=== PATIENT | female | born 1980 ===

== ENCOUNTER 2019-05-31 14:48 | Outpatient (CLI) | payer OTHER | END 2019-05-31 15:37 | disposition home or self-care (01) | LOC: LAB 14:48 | DX: D17.79 Benign lipomatous neoplasm of other sites (principal) ==

== ENCOUNTER 2019-06-05 05:40 | Day surgery (SDC) | payer OTHER | END 2019-06-05 11:30 | disposition home or self-care (01) | LOC: CIR.AMB 05:40 | DX: D17.1 Benign lipomatous neoplasm of skin and subcutaneous tissue of trunk (principal); D17.23 Benign lipomatous neoplasm of skin and subcutaneous tissue of right leg ==